=== PATIENT | female | born 1990 | race African-American/Black ===

== ENCOUNTER 2017-10-18 22:29 | Emergency (ER) | payer SELFPAY ==
[2017-10-18] MEDS ORDERED: BUPIVACAINE HCL/PF 5 MG/ML 10ML VIAL IJ ONE (22:38)
[2017-10-18] MEDS ORDERED: NEOMYCIN/BACITRACIN/POLYMYXINB 1 EACH OINT.PACK TP ONE (22:52)
--- NOTE | 2017-10-18 22:54 | ED Physician Documentation ---
General Adult - HISTORIAN Historian: patient - HPI Stated Complaint: cut finger Chief Complaint: General Adult Additional Information: Cut finger while trying to open a pouch of prepared fish. Occurred just prior to arrival in ER. Last tetanus with 5 years. - ROS CONST: no problems - PAST HX Past History: none Allergies/Adverse Reactions: Allergies Allergy/AdvReac Type Severity Reaction Status Date / Time No Known Allergies Allergy Verified 10/18/17 22:48 Home Medications: Ambulatory Orders Medication Instructions Recorded Metformin HCl [Glucophage] 500 mg PO BID 10/18/17 - SOCIAL HX Smoking History: cigarettes - FAMILY HX Family History: No - REVIEWED ASSESSMENTS Nursing Assessment Reviewed: Yes Vitals Reviewed: Yes Progress - Progress Progress: Cleaned, triple antibiotic and bandage. ED Results Lab/Radiology - Orders Orders: ED Orders Category Date Time Status Apply occlusive dressing D Care 10/18/17 22:52 Active Cleanse with NS and Chlorhexid 1T Care 10/18/17 22:52 Active Bupivacaine HCl/Pf [Marcaine 0.5%] Med 10/18/17 22:38 Discontinued 50 mg IJ NOW ONE Neomycin/Bacitracin/Polymyxinb [Triple Antibiotic Med 10/18/17 22:52 Discontinued Ointment] 1 each TP NOW ONE General Adult Physical Exam - PHYSICAL EXAM GENERAL APPEARANCE: mild distress (anxious) EENT: eye inspection normal, ENT inspection normal NECK: normal inspection, supple RESPIRATORY: no resp distress BACK: normal inspection, other (erect posture, movements w/o pain) SKIN: warm/dry, normal color, other (0.5 cm superficial curvolinear lac of distal phalanx, 2nd left finger, left hand palmar surface) EXTREMITIES: normal range of motion (gait and stance), no evidence of injury NEURO: CN's nml as tested, motor nml, sensation nml, cognition normal Discharge Clincal Impression: Superficial laceration of hand Qualifiers: Encounter type: initial encounter Laterality: left Qualified Code(s): S61.412A - Laceration without foreign body of left hand, initial encounter Referrals: Primary Doctor,No [Primary Care Provider] - 2 Days Condition: Good Disposition: 01 HOME, SELF-CARE Decision to Admit: NO Decision Time: 22:17
[2017-10-19 00:05] VITALS: BP 118/62
== END 2017-10-18 23:25 | disposition home or self-care (01) ==
LOC: ED 22:29
DX: S61.412A Laceration without foreign body of left hand, initial encounter (principal); W26.8XXA Contact with other sharp object(s), not elsewhere classified, initial encounter; Y92.9 Unspecified place or not applicable; Y93.9 Activity, unspecified; Y99.9 Unspecified external cause status
CPT/HCPCS: 99282